=== PATIENT | male | born 1990 | race Caucasian/White ===

== ENCOUNTER 2016-10-17 08:57 | Day surgery (SDC) | payer BC, OTHER ==
[~2016-10-17 08:57] MED LIST: Lactated Ringers 1,000 ML IV SCH; Sodium Chloride 0.9% 10 ML Syringe FLUSH PRN
--- NOTE | 2016-10-17 09:43 | PCM.PN ---
- General Info Date of Service: 10/17/16 - Review of Systems Systems Review Comment:: 26-year-old male here for EGD and colonoscopy. He has symptoms of postprandial crampy abdominal pain and diarrhea. This is chronic for him and he denies any rectal bleeding. He does have a family history of celiac disease. He is medically stable to proceed today. I have again reviewed the proposed upper and lower endoscopy with the patient. He agrees to proceed accepting risks. - Patient Data Vitals - most recent: Last Vital Signs Temp 98.3 F 10/17/16 09:25 Pulse 63 10/17/16 09:25 Resp 20 10/17/16 09:25 BP 130/78 10/17/16 09:25 Pulse Ox 97 10/17/16 09:25 Weight - most recent: 81.647 kg Med Orders - Current: Current Medications Lactated Ringer's (Ringers, Lactated) 1,000 mls @ 125 mls/hr IV ASDIRECTED LEIGH Last Admin: 10/17/16 09:20 Dose: 125 mls/hr Sodium Chloride (Saline Flush) 10 ml FLUSH ASDIRECTED PRN PRN Reason: Keep Vein Open - Problem List Review Problem List Initiated/Reviewed/Updated: Yes - Assessment Assessment:: Abdominal pain and diarrhea - Plan Plan:: EGD and colonoscopy
[2016-10-17] MEDS ORDERED: fentaNYL 100 MCG/2 ML SDV ONE ×2 (10:11→10:20)
[2016-10-17] MEDS ORDERED: Midazolam 1 MG/ML 2 ML SDV ONE ×2 (10:11→10:20)
[2016-10-17] MEDS ORDERED: Propofol 200 MG/20 ML SDV ONE ×2 (10:11→10:20)
[2016-10-17] MEDS ORDERED: Lidocaine 2% 5 ML SDV ONE (10:20)
--- NOTE | 2016-10-17 11:11 | PCM.OPNOTE ---
- General Post-Op/Procedure Note Date of Surgery/Procedure: 10/17/16 Operative Procedure(s): EGD with Biopsy and Colonoscopy with Biopsy Findings: Normal appearing EGD and Colonoscopy Pre Op Diagnosis: Abdominal Pain and Diarrhea Post-Op Diagnosis: Normal Upper and Lower Endoscopy Anesthesia Technique: MAC Primary Surgeon: Olivier Menjivar Pathology: Biopsies of Duodeum, Antrum, Terminal Ileum and Colon Output, Urine Amount: 0 EBL in mLs: 4 Complications: None Condition: Good Free Text/Narrative:: Intake & Output 10/16/16 10/17/16 10/17/16 22:59 06:59 14:59 Intake Total 500 Balance 500
--- NOTE | 2016-10-17 12:05 | OR ---
Date of Procedure: 10/17/2016 PREOPERATIVE DIAGNOSES: Abdominal pain and diarrhea. POSTOPERATIVE DIAGNOSES: Abdominal pain and diarrhea. TEST PERFORMED: Esophagogastroduodenoscopy with biopsy and colonoscopy with biopsy. INDICATIONS FOR SURGERY: This 26-year-old male has a history of chronic symptoms of postprandial crampy abdominal pain and diarrhea. Upper and lower endoscopy is planned for evaluation of this. FINDINGS: Structures examined included the esophagus, stomach, and duodenum on upper endoscopy, as well as the colon and terminal ilium on colonoscopy. All of these structures appeared normal without visible signs of inflammation or other abnormality. PROCEDURE IN DETAIL: The patient was taken to the operating room. He was given intravenous sedation and his throat was topically anesthetized. The esophagus was intubated with the Olympus gastroscope. This was carefully advanced under direct visualization through the esophagus, stomach, and down to the fourth portion of the duodenum. Random biopsies of the duodenum were taken to rule out celiac disease. The scope was withdrawn back into the stomach and biopsies of the antrum are taken to rule out H. pylori. Full examination of the stomach including retroflexed examination of the fundus was performed. The GE junction and esophagus were then re-examined as the scope was withdrawn. After this procedure had been completed, the upper endoscope was removed and attention was turned to colonoscopy. Digital rectal exam was performed showing no rectal masses. The Olympus colonoscope was inserted into the rectum and retroflexed examination of the rectal canal is performed. The scope was then carefully advanced under direct visualization through the entire length of the colon until cecum was reached. Cecal acquisition is confirmed by noting the normal internal cecal anatomy including the appendiceal orifice and ileocecal valve. The ileocecal valve was cannulated and the terminal ilium was also examined. Random biopsies of the terminal ilium are taken. The scope was then slowly withdrawn sequentially re-examining the colonic segments. During withdrawal of the scope, random biopsies in both the right and left colon were taken to further evaluate the patient's symptoms. After the colon and rectum had been completely examined and with no sign of any complicating process, the scope was removed and the patient was taken from the operating room in satisfactory condition. ESTIMATED BLOOD LOSS: 4 mL. COMPLICATIONS: None. PROGNOSIS: Good. TANG Menjivar MD /[id number]
[2016-10-17 15:36] VITALS: BP 121/54
== END 2016-10-17 12:03 | disposition home or self-care (01) ==
LOC: LL.SDS 08:57
PROVIDERS: ATTEND Surgery
DX: K29.50 Unspecified chronic gastritis without bleeding (principal); Z79.899 Other long term (current) drug therapy
CPT/HCPCS: 43239; 45380; J2250; J2704; J3010; J7120